=== PATIENT | male | born 1975 | race Caucasian/White ===

== ENCOUNTER 2017-10-23 21:41 | Emergency (ER) | payer OTHER ==
[2017-10-23] MEDS ORDERED: ASPIRIN 81 MG CHEWABLE TAB PO ONE (21:55)
--- NOTE | 2017-10-23 21:56 | EDPHY ---
H & P Stated Complaint: chest pain epigastric pain Time Seen by Provider: 10/23/17 21:55 HPI/ROS: Chief Complaint: Chest pain HPI: 42-year-old male began having substernal chest pain radiating to his neck in the back of his arms earlier this evening. It began about 2.5 hr prior to presentation emergency department. It felt like indigestion. He did take 4 antacid tablets without any relief. Has never had any pain similar to this in the past. At worst pain was an 8/10. Currently is 5/10. No fevers or chills. No cough. No shortness of breath. There are no aggravating or alleviating factors. No nausea or vomiting. He does not smoke. He has no family history of coronary artery disease. ROS: 10 point Review of Systems is negative except as noted in the HPI. PMH: Denies Social History: No smoking, occasional alcohol, occasional marijuana Family History: non-contributory Physical Exam: Gen: Awake, Alert, No Distress HEENT: Nose: no rhinorrhea Eyes: PERRLA, EOMI Mouth: Moist mucosa Neck: Supple, no JVD Chest: nontender, lungs clear to auscultation Heart: S1, S2 normal, no murmur Abd: Soft, non-tender, no guarding Back: no CVA tenderness, no midline tenderness Ext: no edema, non-tender Skin: no rash Neuro: CN II-XII intact, Sensation grossly intact, Strength 5/5 in bilateral upper and lower extremities - Personal History Current Tetanus/Diphtheria Vaccine: Unsure Current Tetanus Diphtheria and Acellular Pertussis (TDAP): Unsure - Medical/Surgical History Hx Asthma: No Hx Chronic Respiratory Disease: No Hx Diabetes: No Hx Cardiac Disease: No Hx Renal Disease: No Hx Cirrhosis: No Hx Alcoholism: No Hx HIV/AIDS: No Hx Splenectomy or Spleen Trauma: No - Social History Smoking Status: Current some day smoker Constitutional: Initial Vital Signs Temperature (C) 36.4 C 10/23/17 21:47 Heart Rate 49 L 10/23/17 21:47 Respiratory Rate 18 10/23/17 21:47 Blood Pressure 165/98 H 10/23/17 21:47 O2 Sat (%) 99 10/23/17 21:47 O2 Delivery Mode Room Air Allergies/Adverse Reactions: Sulfa (Sulfonamide Antibiotics) [Sulfa(Sulfonamide Antibiotics)] Allergy ( Verified 10/23/17 21:46) Home Medications: Medication Instructions Recorded Diazepam [Valium 10 MG (RX)] 10 mg PO TID PRN #20 tab 07/12/12 Sleep Med 07/12/12 Wellbutrin 100mg (*) 10/23/17 Medical Decision Making - Diagnostics EKG Interpretation: ECG time 9:56 p.m., sinus bradycardia with a rate of 45, normal axis, normal intervals, no acute ST or T-wave changes. Impression: Sinus bradycardia. Imaging Results: Imaging Impressions Chest X-Ray 10/23/17 22:16 Impression: No acute pulmonary disease. ED Course/Re-evaluation: 42-year-old male with an episode of chest pain radiating to his neck and behind his shoulders. ECG is normal. Troponin is negative. He has not have any risk factors for coronary artery disease. Will plan for a 6 hr repeat troponin. This is negative he can be discharged with follow-up as an outpatient for outpatient stress testing. 6 hr troponin is normal. Patient is - Data Points Laboratory Results: Laboratory Results 10/23/17 22:00 10/23/17 22:00 10/24/17 10/23/17 10/23/17 02:10 22:00 22:00 WBC 6.60 10^3/uL 10^3/uL (3.80-9.50) RBC 4.93 10^6/uL 10^6/uL (4.40-6.38) Hgb 15.3 g/dL g/dL (13.7-17.5) Hct 43.4 % % (40.0-51.0) MCV 88.0 fL fL (81.5-99.8) MCH 31.0 pg pg (27.9-34.1) MCHC 35.3 g/dL g/dL (32.4-36.7) RDW 12.3 % % (11.5-15.2) Plt Count 208 10^3/uL 10^3/uL (150-400) MPV 11.2 fL fL (8.7-11.7) Neut % (Auto) 53.8 % % (39.3-74.2) Lymph % (Auto) 34.1 % % (15.0-45.0) [place] % (Auto) 9.2 % % (4.5-13.0) Eos % (Auto) 2.1 % % (0.6-7.6) Baso % (Auto) 0.6 % % (0.3-1.7) Nucleat RBC Rel Count 0.0 % % (0.0-0.2) Absolute Neuts (auto) 3.55 10^3/uL 10^3/uL (1.70-6.50) Absolute Lymphs (auto) 2.25 10^3/uL 10^3/uL (1.00-3.00) Absolute Monos (auto) 0.61 10^3/uL 10^3/uL (0.30-0.80) Absolute Eos (auto) 0.14 10^3/uL 10^3/uL (0.03-0.40) Absolute Basos (auto) 0.04 10^3/uL 10^3/uL (0.02-0.10) Absolute Nucleated RBC 0.00 10^3/uL 10^3/uL (0-0.01) Immature Gran % 0.2 % % (0.0-1.1) Immature Gran # 0.01 10^3/uL 10^3/uL (0.00-0.10) Sodium 139 mEq/L mEq/L (135-145) Potassium 3.9 mEq/L mEq/L (3.5-5.2) Chloride 98 mEq/L mEq/L (97-110) Carbon Dioxide 29 mEq/l mEq/l (22-31) Anion Gap 12 mEq/L mEq/L (8-16) BUN 25 mg/dL H mg/dL (7-23) Creatinine 1.1 mg/dL mg/dL (0.7-1.3) Estimated GFR > 60 Glucose 112 mg/dL H mg/dL (70-100) Calcium 9.5 mg/dL mg/dL (8.5-10.4) Troponin I < 0.012 ng/mL ng/mL < 0.012 ng/mL ng/mL (0.000-0.034) (0.000-0.034) Medications Given: Discontinued Medications Aspirin (Aspirin) 324 mg PO EDNOW ONE Stop: 10/23/17 21:56 Last Admin: 10/23/17 21:57 Dose: 324 mg Pantoprazole Sodium (Protonix) 40 mg IVP EDNOW ONE Stop: 10/23/17 22:21 Last Admin: 10/23/17 22:46 Dose: 40 mg Departure - Departure Disposition: Home, Routine, Self-Care Clinical Impression: Chest pain Condition: Good Instructions: Chest Pain (ED) Additional Instructions: Follow up with primary care physician in 3-4 days to arrange for outpatient stress testing. Return to the emergency department for increasing chest pain, shortness of breath, fainting, fevers, chills, or any other concerns. Referrals: Fernanda Caballero MD [Medical Doctor] - As per Instructions
--- NOTE | 2017-10-23 21:58 | CPEKG ---
Heart Rate: 45 RR Interval: 1333 P-R Interval: 160 QRSD Interval: 92 QT Interval: 460 QTC Interval: 398 P [place]: 38 QRS [place]: 47 T Wave [place]: 40 EKG Severity - OTHERWISE NORMAL ECG - EKG Impression: SINUS BRADYCARDIA Electronically Signed By: Jay Matos 24-Oct-2017 05:29:09
[2017-10-23] MEDS ORDERED: PANTOPRAZOLE SODIUM 40 MG VIAL IVP ONE (22:20)
[2017-10-23 22:26] LABS: PLATELET COUNT 208 10^3/uL (150-400)
[2017-10-24 02:15] VITALS: O2SAT 95
[2017-10-24 03:29] VITALS: BP 118/76; PULSE 52; RESP 14; TEMP 98.2
== END 2017-10-24 03:32 | disposition home or self-care (01) ==
DX: R07.9 Chest pain, unspecified (principal); F17.200 Nicotine dependence, unspecified, uncomplicated
CPT/HCPCS: 96374

== ENCOUNTER 2017-10-24 15:10 | Observation (INO) | payer OTHER ==
--- NOTE | 2017-10-24 16:05 | EDPHY ---
H & P Time Seen by Provider: 10/24/17 15:52 HPI/ROS: Chief complaint. Chest pain HPI. 42-year-old male presents emergency department with chest discomfort. It began about 2 o'clock today. He was seen last night for same and a normal workup and was discharged. He was fit essentially pain free on discharge and then symptoms came back at about 2:00 p.m. today. Last night the chest discomfort began after dinner. Today however the patient had not eaten infected taken as Zantac as well as a cup coffee. He describes the discomfort as anterior chest going to the back of both arms into his chin. When it is bad it hurts to breathe and slight shortness of breath. The pain is otherwise described as crampy. He has no abdominal pain or nausea or vomiting. No unusual leg pain or swelling. No recent travel. No fever or cough. Patient's father in law is a GI surgeon and thinks that this may be gallbladder though the patient really does not have pain in the right upper quadrant of his abdomen. No similar symptoms previously ROS Constitutional. no fever/chills, no weakness Eyes. no problems with vision ENT. no sore throat, no nasal drainage Cardiovascular. Chest pain Respiratory. Shortness of breath Abdominal. no abdominal pain, no nausea/vomiting, no diarrhea . no problems urinating MS. no calf pain/swelling, no neck/back pain, no joint pain Skin. no rash Lymph. no swollen glands Neuro. no headache, no dizziness, no difficulty walking or with speech Past Medical/Surgical History: Past medical history anxiety Family history negative for early coronary artery disease Social History: , nonsmoker, no alcohol Smoking Status: Former smoker Physical Exam: General Appearance: Alert well-developed male mild distress vital signs are stable Eyes: Pupils equal and round no pallor or injection. ENT, Mouth: Mucous membranes are moist. Respiratory: There are no retractions, lungs are clear to auscultation. Cardiovascular: Regular rate and rhythm. Gastrointestinal: Abdomen is soft and nontender, no masses, bowel sounds normal. No tenderness in the right upper Neurological: Awake and alert, sensory and motor exams grossly normal. Skin: Warm and dry, no rashes. Musculoskeletal: Neck is supple nontender. Extremities symmetrical, full range of motion. Psychiatric: Patient is oriented X 3, there is no agitation. Constitutional: Initial Vital Signs Temperature (C) 36.8 C 10/24/17 15:13 Heart Rate 69 10/24/17 15:13 Respiratory Rate 16 10/24/17 15:13 Blood Pressure 125/79 H 10/24/17 15:13 O2 Sat (%) 97 10/24/17 15:13 O2 Delivery Mode Room Air Allergies/Adverse Reactions: Sulfa (Sulfonamide Antibiotics) [Sulfa(Sulfonamide Antibiotics)] Allergy ( Verified 10/23/17 21:46) Home Medications: Medication Instructions Recorded ALPRAZolam [Xanax 0.5 MG (*)] 0.5 mg PO HS PRN 10/24/17 Melatonin [Melatonin 3 MG (*)] 3 mg PO HS PRN 10/24/17 buPROPion SR [Wellbutrin 100mg SR 100 mg PO DAILY 10/24/17 (*)] Medical Decision Making - Diagnostics EKG Interpretation: EKG interpreted by me shows normal sinus rhythm normal interval and axis. QRS is normal there now appears to be ST elevation in leads V2 and V3. No arrhythmia. The rate is 55. Comparison with EKG from October 23 at 10:00 p.m. does not show the ST elevation Imaging Results: Imaging Impressions Abdomen Ultrasound 10/24/17 16:19 Impression: 1. No cholelithiasis or biliary ductal dilation. 2. Otherwise limited study. Findings and recommendations discussed with Emergency Department physician, ROSHAN CARTER at 17:01 hour, 10/24/2017. Final report concurs with initial preliminary interpretation. Chest x-ray reviewed by me from last night was normal Echocardiogram is suggestive of pericarditis. Reviewed by me and discussed with Dr. Yost Procedures: IV normal saline, monitor ED Course/Re-evaluation: I consulted and discussed case with Dr. Yost, cardiology will see the patient in the emergency. I consulted discussed case with Dr. Daly, hospitalist who agrees To the admission I have discussed imaging lab EKG findings with the patient and his . We discussed treatment plan including recommendation for admission. They expressed understanding and agreement Differential Diagnosis: This is likely pericarditis. Patient had a normal workup last night and was ruled out for acute coronary syndrome. Is troponin is normal today. However he has ST elevation in the anterior septal leads. - Data Points Laboratory Results: Laboratory Results 10/24/17 16:32 10/24/17 16:32 02/05/0310/24/17 10/24/17 16:32 16:32 16:32 WBC 6.23 10^3/uL 10^3/uL (3.80-9.50) RBC 4.84 10^6/uL 10^6/uL (4.40-6.38) Hgb 15.0 g/dL g/dL (13.7-17.5) Hct 42.4 % % (40.0-51.0) MCV 87.6 fL fL (81.5-99.8) MCH 31.0 pg pg (27.9-34.1) MCHC 35.4 g/dL g/dL (32.4-36.7) RDW 12.3 % % (11.5-15.2) Plt Count 172 10^3/uL 10^3/uL (150-400) MPV 10.8 fL fL (8.7-11.7) Neut % (Auto) 60.8 % % (39.3-74.2) Lymph % (Auto) 24.2 % % (15.0-45.0) [place] % (Auto) 12.8 % % (4.5-13.0) Eos % (Auto) 1.6 % % (0.6-7.6) Baso % (Auto) 0.3 % % (0.3-1.7) Nucleat RBC Rel Count 0.0 % % (0.0-0.2) Absolute Neuts (auto) 3.78 10^3/uL 10^3/uL (1.70-6.50) Absolute Lymphs (auto) 1.51 10^3/uL 10^3/uL (1.00-3.00) Absolute Monos (auto) 0.80 10^3/uL 10^3/uL (0.30-0.80) Absolute Eos (auto) 0.10 10^3/uL 10^3/uL (0.03-0.40) Absolute Basos (auto) 0.02 10^3/uL 10^3/uL (0.02-0.10) Absolute Nucleated RBC 0.00 10^3/uL 10^3/uL (0-0.01) Immature Gran % 0.3 % % (0.0-1.1) Immature Gran # 0.02 10^3/uL 10^3/uL (0.00-0.10) D-Dimer 0.44 ug/mLFEU ug/mLFEU (0.00-0.50) Sodium 142 mEq/L mEq/L (135-145) Potassium 4.1 mEq/L mEq/L (3.5-5.2) Chloride 101 mEq/L mEq/L (97-110) Carbon Dioxide 29 mEq/l mEq/l (22-31) Anion Gap 12 mEq/L mEq/L (8-16) BUN 15 mg/dL mg/dL (7-23) Creatinine 1.0 mg/dL mg/dL (0.7-1.3) Estimated GFR > 60 Glucose 93 mg/dL mg/dL (70-100) Calcium 9.5 mg/dL mg/dL (8.5-10.4) Total Bilirubin 0.9 mg/dL mg/dL (0.1-1.4) Conjugated Bilirubin 0.3 mg/dL mg/dL (0.0-0.5) Unconjugated Bilirubin 0.6 mg/dL mg/dL (0.0-1.1) AST 19 IU/L IU/L (17-59) ALT 25 IU/L IU/L (21-72) Alkaline Phosphatase 44 IU/L IU/L (38-126) Troponin I < 0.012 ng/mL ng/mL (0.000-0.034) Total Protein 6.9 g/dL g/dL (6.3-8.2) Albumin 4.2 g/dL g/dL (3.5-5.0) Lipase 91 IU/L IU/L (23-300) Medications Given: Colchicine (Colchicine) 0.6 mg PO BID MALIA Stop: 04/22/18 20:59 Last Admin: 10/24/17 21:09 Dose: 0.6 mg Discontinued Medications Ketorolac Tromethamine (Toradol) 30 mg IVP EDNOW ONE Stop: 10/24/17 17:02 Last Admin: 10/24/17 17:23 Dose: 30 mg Pantoprazole Sodium (Protonix) 40 mg PO EDNOW ONE Stop: 10/24/17 17:22 Last Admin: 10/24/17 17:40 Dose: 40 mg Departure - Departure Disposition: [facility] Clinical Impression: Chest pain Qualifiers: Chest pain type: unspecified Qualified Code(s): R07.9 - Chest pain, unspecified Pericarditis Qualifiers: Pericarditis type: unspecified type Chronicity: acute Qualified Code(s): I30.9 - Acute pericarditis, unspecified Condition: Fair
--- NOTE | 2017-10-24 16:27 | CPEKG ---
Heart Rate: 55 RR Interval: 1091 P-R Interval: 168 QRSD Interval: 100 QT Interval: 416 QTC Interval: 398 P [place]: 33 QRS [place]: 43 T Wave [place]: 40 EKG Severity - NORMAL ECG - EKG Impression: SINUS RHYTHM EKG Impression: ST ELEV, PROBABLE NORMAL EARLY REPOL PATTERN Electronically Signed By: Celso Howell 24-Oct-2017 17:37:10
[2017-10-24 16:45] LABS: PLATELET COUNT 172 10^3/uL (150-400)
[2017-10-24] MEDS ORDERED: KETOROLAC 30 MG/1 ML SDV IVP ONE (17:01)
[2017-10-24] MEDS ORDERED: KETOROLAC 15 MG/1 ML SDV ONE (17:18)
[2017-10-24] MEDS ORDERED: PANTOPRAZOLE SODIUM 40 MG TAB PO ONE ×2 (17:21→17:38)
[2017-10-24] MEDS ORDERED: ONDANSETRON DISINTEGRATING 4 MG TAB PO PRN (17:31)
[2017-10-24] MEDS ORDERED: ONDANSETRON 4 MG/2 ML VIAL IVP PRN (17:31)
[2017-10-24] MEDS ORDERED: ACETAMINOPHEN 325 MG TAB PO PRN (17:31)
[2017-10-24] MEDS: COLCHICINE 0.6 MG CAP/TAB PO SCH (21:09)
[2017-10-25 06:15] VITALS: O2SAT 97
--- NOTE | 2017-10-25 07:15 | GCON ---
[f rep st] CONSULTATION DATE OF CONSULTATION: 10/24/2017 REFERRING PHYSICIAN: Celso Howell MD INDICATIONS: Chest discomfort. HISTORY OF PRESENT ILLNESS: This patient is 42 years old and at his baseline is very healthy. He do es have a history of ADHD and was recently started on Wellbutrin. He is currently seen in the emerge ncy department with chest discomfort. He had similar symptoms last night. He notes that, beginning about 8:30, he developed the abrupt onset of precordial chest pain. This was described as a heavy se nsation in his mid retrosternal region with radiation to the posterior aspect of both upper extremiti es and to the throat. This was associated with increased eructation. The pain persisted for about 2 hours and prompted an emergency department visit last night. [facility] An ECG was done at that time, which demonstrated sinus bradycardia at 45 beats per minute . He had no significant ST or T changes. He had basic blood tests, including a troponin drawn. Add itionally, a chest x-ray was done. Those were all noted to be normal. Subsequently, he was treated with Protonix IV and was released from the hospital. He was doing well earlier today. He decided he was going to take some Zantac, however, never did get to take that medication. Beginning about 1:30 to 2 o'clock this afternoon, his chest discomfort rec urred. This time, the chest pain migrated a little bit to the right anterior chest. In talking to h im about this, the pain is worse with deep inspiration. There may be a little bit of an aggravation to his pain when he lies flat. He has also noted the pain when he rolls over onto his left side. He has not had any shortness of breath. He denies nausea, vomiting, and diaphoresis. He has never had a DVT or PE. There is no recent history of fever, chills, or sweats. He has not had hemoptysis. His electrocardiogram today also demonstrates sinus bradycardia. His heart rate is 55 beats per gary te. He does have J-point elevation with concave ST-segment elevation in the anterolateral precordial leads. His troponin is currently negative. REVIEW OF SYSTEMS: A full 10-point review of systems was performed and is otherwise negative. PAST MEDICAL HISTORY: Attention deficit hyperactivity disorder. HOME MEDICATIONS: Wellbutrin, occasionally uses a benzodiazepine. ALLERGIES: None. SOCIAL HISTORY: He is . He has a 1-month-old son at home. 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 He states he works a lot. He does like to exercise. He l ikes to run and go climbing. He is able to perform physical activities without chest discomfort or b reathlessness. He smoked casually in the past. He uses marijuana occasionally. He drinks only rare ly. SURGICAL HISTORY: Noncontributory. FAMILY HISTORY: Negative for premature atherosclerosis. STUDY RESULTS: His electrocardiogram is as described above. A complete metabolic panel was normal, including LFTs and lipase. His troponin today is likewise normal. D-dimer is currently pending. Hi s white blood cell count 6.23, platelet count 172,000, hematocrit . His chest x-ray from evening was unremarkable. He had a right upper quadrant ultrasound done today, which was ne gative for cholelithiasis. IMPRESSION: The patient is 42 years old who at his baseline is very healthy. He has a benign cardia c risk factor profile. He presents to the emergency department now with his second emergency departm ent visit for chest discomfort. The description of his chest pain being respirophasic, migrating to the right upper chest, and slightly worse when lying flat, associated with his EKG changes, suggests pericarditis. He does not have a pericardial friction rub noted on physical examination. I do not t hink his chest pain syndrome is really consistent with pulmonary embolism, nor is it really consisten t with dissection. An acute coronary syndrome has not definitively been excluded; however, his cardi ac enzymes are negative at the present time. There is no indication of an obvious pulmonary process, either pneumothorax or pneumonia. He does not appear to have suffered chest wall injury. His right upper quadrant ultrasound was negative, effectively excluding gallbladder disease. RECOMMENDATIONS: 1. At the present time, I think he should be monitored in the observation unit overnight. 2. I think his cardiac enzymes should be trended. 3. I have ordered an echocardiogram, which can be performed in the morning. 4. I would like to keep him n.p.o. in the morning. We may consider stress testing, depending on how he does this evening. 5. I have written for Toradol for pain control. 6. Will perform a chest CTA, depending on the results of his D-dimer. /[id number]/MODL
[2017-10-25 08:11] VITALS: BP 111/70; PULSE 49; RESP 16; TEMP 98
--- NOTE | 2017-10-25 08:22 | ECHO ---
[email or web address] [address] [address] Main: [phone] Fax: Transthoracic Echocardiogram Name: MODE LÓPEZ MR#: [id number] Study Date: 10/24/2017 Study Time: 06:23 PM Date of : 1975 Age: 42 year(s) Height: 180.3 cm (71 in.) Weight: 81.19 kg (179 lb.) BSA: 2.01 m2 Gender: Male Examination: Echo Indication: Chest Pain Image Quality: Contrast: Requested by: Wilmar Yost BP: / Heart Rate: Rhythm: Normal sinus rhythm Indication: Chest Pain Procedure Staff Taxi Driver: Torrey Prado RDCS Reading Physician: Wilmar Yost Requesting Provider: Conclusions: Normal study Measurements: Chambers Valvular Assessment AV/MV Valvular Assessment TV/PV Normal Normal Normal Name Value Range Name Value Range Name Value Range Ao Vivian (MM): 3.1 cm (2.2 cm-3.7 AV Vmax: 1.13 m/s (1 m/s-1.7 PV Vmax: 0.49 m/s (0.6 m/s-0.9 cm) m/s) m/s) IVSd (2D): 1.0 cm (0.6 cm-1.1 AV maxP mmHg ( - ) PV PGmax: 1 mmHg ( - ) cm) LVOT Vmax: 0.97 m/s (0.7 m/s-1.1 LVDd (2D): 4.3 cm (4.2 cm-5.9 m/s) cm) MV E Vmax: 0.56 m/s ( - ) LVDs (2D): 2.7 cm (2.1 cm-4 MV A Vmax: 0.31 m/s ( - ) cm) MV E/A: 1.81 ( - ) LVPWd (2D): 1.1 cm (0.6 cm-1 cm) LVEF (2D): 66 (>=54 %) Continued Measurements: Chambers Valvular Assessment AV/MV Name Value Name Value LADs Lon.4 cm MV A' Septal: 0.10 m/s LA Area: 18.0 cm2 MV E/E' Septal: 7.90 MV E/E' Lateral: 5.70 Findings: Left Ventricle: Normal size left ventricle. No LV hypertrophy. Normal global systolic LV function. EF is 66 %. No Patient: MODE LÓPEZ Study Date: 10/24/2017 Page 1 of 2 06:23 PM regional wall motion abnormality. Normal diastolic LV function. Right Ventricle: Normal size right ventricle. Left Atrium: The left atrium is normal in size. Right Atrium: The right atrium is normal in size. Mitral Valve: The mitral valve is normal in appearance and function. Aortic Valve: The aortic valve is normal in appearance and function. Tricuspid Valve: The tricuspid valve is normal in appearance and function. Trivial tricuspid valve regurgitation. The pulmonary artery pressure is normal. Pulmonic Valve: The pulmonic valve is normal in appearance and function. Aorta: The aorta is normal. Pericardium: No pericardial effusion. (No Signature Object) Patient: MODE LÓPEZ Study Date: 10/24/2017 Page 2 of 2 06:23 PM [id number]
[2017-10-25] MEDS: COLCHICINE 0.6 MG CAP/TAB PO SCH (08:23)
--- NOTE | 2017-10-25 09:23 | CPEKG ---
Heart Rate: 49 RR Interval: 1224 P-R Interval: 172 QRSD Interval: 88 QT Interval: 448 QTC Interval: 405 P [place]: 36 QRS [place]: 49 T Wave [place]: 47 EKG Severity - OTHERWISE NORMAL ECG - EKG Impression: SINUS BRADYCARDIA EKG Impression: ST ELEV, PROBABLE NORMAL EARLY REPOL PATTERN Electronically Signed By: Chapito Giron 26-Oct-2017 08:26:07
--- NOTE | 2017-10-25 10:19 | ASMTLACE ---
LACE Length of stay for Answers: Less than 1 day current admission Acuity / Level of Answers: No Care: Did the patient have an inpatient admission? Comorbidities - select Answers: Other Notes: anxiety, chest pain all that apply # of Emergency department Answers: 1-2 visits in the last 6 months Score: 2 Date Signed: 10/25/2017 10:18 AM Electronically Signed By:Dora Anton RN
--- NOTE | 2017-10-25 11:25 | GDS ---
[f rep st] DISCHARGE SUMMARY DISCHARGE DIAGNOSIS: Pericarditis. HISTORY OF PRESENT ILLNESS: The patient is a 42-year-old male who presented to the hospital with caty st discomfort. His symptoms began the night prior to admission, which he described as a heavy sensat ion in his mid retrosternal region that radiated to both upper extremities and throat. He also noted increased gas. His pain persisted for 2 hours and therefore, he presented to the emergency room. H is EKG revealed bradycardia without any significant ST-T wave changes to suggest ischemia. His tropo nins have been negative. He had an echocardiogram which showed preserved LV function without any darrell dence of pericardial effusion. Ultimately, his symptoms and EKG were most consistent with pericardit is and therefore, he was treated with Toradol. He did note improvement in his chest discomfort. The following morning, his EKG revealed bradycardia without any ST-T wave changes to suggest ischemia. His troponins remained negative. He also had an ultrasound of his abdomen, which was unremarkable. At the time of discharge, he was complaining of very mild chest discomfort which was worse when lying on his right side. His pain had significantly improved. PHYSICAL EXAMINATION: GENERAL: Patient appears in no acute distress. VITAL SIGNS: Blood pressure 11 1/70, heart rate 49, oxygen saturation 97% on room air, afebrile. LUNGS: Clear to auscultation. No wheezes, rhonchi, or crackles auscultated. CARDIAC: Regular rate and rhythm without any murmurs, rub s, or gallops appreciated. EXTREMITIES: No evidence of edema. DISCHARGE MEDICATIONS: Colchicine 0.6 mg twice daily, ibuprofen 400 mg t.i.d. X4 days, Protonix 40 m g daily, Xanax 0.5 mg p.r.n., Wellbutrin 100 mg daily, melatonin 3 mg p.r.n. at bedtime. PLAN: The patient is currently stable and ready for discharge home. He will take colchicine as well as ibuprofen. He will take ibuprofen for 4 days and if his discomfort has improved, he can then wea n off the medication. He will need to be on colchicine for 3-6 months. He is not to do any physical activity until his followup visit with Dr. Jacky Yost which is scheduled for November 06 at 1:00. /[id number]/MODL
== END 2017-10-25 11:22 | disposition home or self-care (01) ==
LOC: F2W 19:34
PROVIDERS: ADMIT Internal Medicine Cardiovascular Disease; ATTEND Internal Medicine Cardiovascular Disease
DX: I30.9 Acute pericarditis, unspecified (principal); R00.1 Bradycardia, unspecified; F41.9 Anxiety disorder, unspecified; Z88.2 Allergy status to sulfonamides
CPT/HCPCS: 76705; 93005; 93306; G0378; 96374; J1885